=== PATIENT | female | born 1940 | race Caucasian/White ===

== ENCOUNTER 2017-10-27 09:59 | Day surgery (SDC) | payer MEDICARE, MEDICAID ==
[2017-10-26 15:25] LABS: BASOPHILS % (AUTO) 0.6 % (0-1); EOSINOPHILS # (AUTO) 0.2 X10'3 (0-0.9); EOSINOPHILS % (AUTO) 3.3 % (0-6); HEMATOCRIT 36.9 % (35.0-45.0); LYMPHOCYTES # (AUTO) 1.6 X10'3 (1.1-4.8); LYMPHOCYTES % (AUTO) 29.7 % (21-51); MEAN CORPUSCULAR HEMOGLOBIN 31.2 PG (27.0-31.0); MEAN CORPUSCULAR HGB CONC 35.3 % (33.0-36.5); MEAN CORPUSCULAR VOLUME 88.3 FL (78-98); MEAN PLATELET VOLUME 10.1 FL (7.4-10.4); MONOCYTES # (AUTO) 0.3 X10'3 (0-0.9); MONOCYTES % (AUTO) 5.9 % (2-12); NEUTROPHILS # (AUTO) 3.3 X10'3 (1.8-7.7); NEUTROPHILS % (AUTO) 60.5 % (42-75); PLATELET COUNT 233 X10'3 (140-440); RED BLOOD COUNT 4.18 X10'6 (4.20-5.60); WHITE BLOOD COUNT 5.4 X10'3 (4.5-11.0)
[2017-10-26 15:34] LABS: PARTIAL THROMBOPLASTIN TIME 26 SECONDS (22-32); PROTHROMBIN TIME 10.4 SECONDS (9.0-12.0)
[2017-10-26 15:35] LABS: ALBUMIN 3.8 G/DL (3.4-5.0); ANION GAP 7 (8-16); BLOOD UREA NITROGEN 11 MG/DL (7-18); BUN/CREATININE RATIO 13.8 (6.6-38.0); CHLORIDE 105 MMOL/L (99-107); GLUCOSE 163 MG/DL (70-104); POTASSIUM 3.9 MMOL/L (3.5-5.1); SODIUM 142 MMOL/L (135-145); TOTAL CARBON DIOXIDE 29.9 MMOL/L (24-32); eGFR 69 ML/MIN
[2017-10-27] VITALS (11 sets, daily range): BP systolic 120–174; BP diastolic 52–76
[~2017-10-27] VITALS: Ht 165.1 cm; Wt 75.6 kg
[2017-10-27] MEDS ORDERED: diphenhydrAMINE 25mg capsule PO PRN (10:20)
[2017-10-27] MEDS ORDERED: LORazepam 0.5 MG tablet PO PRN (10:20)
[2017-10-27] MEDS ORDERED: normal saline 1000ml 1,000 ML IV SCH (10:20)
[2017-10-27] MEDS ORDERED: ASPI-611 PO (11:03)
[2017-10-27] MEDS ORDERED: NITR0.4T51 SL (11:03)
[2017-10-27] MEDS ORDERED: ADV50250 IH (11:03)
[2017-10-27] MEDS ORDERED: METO25TA6 PO (11:03)
[2017-10-27] MEDS ORDERED: ALBU8.5H8 INH (11:03)
[2017-10-27] MEDS ORDERED: nitroGLYCERIN-Tridil 50MG/D5W 250 ML IV ONE (12:16)
[2017-10-27] MEDS ORDERED: LIDOcaine 1%/PF (10mg/ml) 5ml vial ONE (12:17)
[2017-10-27] MEDS ORDERED: midazolam 2 mg/2 ml injection ONE (12:17)
[2017-10-27] MEDS ORDERED: iohexol 350MG/ML 100ml bottle IV ONE (12:17)
[2017-10-27] MEDS ORDERED: iohexol 350 MG/ML 50ML vial IV ONE (12:17)
[2017-10-27] MEDS ORDERED: fentaNYL/PF 50MCG/1 ML 2ML syringe ONE (12:17)
[2017-10-27] MEDS ORDERED: heparin 1,000unit/ml 10ml vial 10 ML ONE (12:17)
[2017-10-27] MEDS ORDERED: hydrALAZINE 20mg/ml inj. IV ONE (13:38)
[2017-10-27 13:51] LABS: ISTAT HGB ART 12.2 g/dl (12.0-16.0); ISTAT Hct ART 36 %PCV (35-48); ISTAT Hct MIX 36 %PCV (35-48); ISTAT O2 SATURATION ARTERIAL 96 % (95-98); ISTAT O2 SATURATION MIX VENOUS 66 % (60-80); ISTAT SOURCE ART; ISTAT SOURCE MIX
== END 2017-10-27 18:00 | disposition home or self-care (01) ==
LOC: SSTAY O 09:59
PROVIDERS: ATTEND Internal Medicine Cardiovascular Disease
DX: I25.10 Atherosclerotic heart disease of native coronary artery without angina pectoris (principal); I35.1 Nonrheumatic aortic (valve) insufficiency; F15.90 Other stimulant use, unspecified, uncomplicated; E11.9 Type 2 diabetes mellitus without complications; I25.2 Old myocardial infarction; I10 Essential (primary) hypertension; E78.5 Hyperlipidemia, unspecified; Z78.0 Asymptomatic menopausal state; Z79.82 Long term (current) use of aspirin; Z79.84 Long term (current) use of oral hypoglycemic drugs; Z88.0 Allergy status to penicillin; Z87.891 Personal history of nicotine dependence; Z79.01 Long term (current) use of anticoagulants; Z86.73 Personal history of transient ischemic attack (TIA), and cerebral infarction without residual deficits
CPT/HCPCS: 36415; 80048; 82803; 85014; 85025; 85610; 85730; 93005; 93460; 93567; 99152; 99153; A6257; C1760; J0360; J1644; J2001; J2250; J3010; J3490; J7030; Q0163; Q9967; A4620